=== PATIENT | female | born 1990 | race Caucasian/White ===

== ENCOUNTER 2020-04-17 13:28 | Observation (INO) | payer MEDICAID, SELFPAY ==
--- NOTE | ~2020-04-17 | US_ITS ---
EXAMINATION: US OB limited DATE: 04/17/2020 15:55 INDICATION: Placental evaluation, third trimester TECHNIQUE: Real-time ultrasound of the pelvis was performed. The interpreting radiologist was not pre sent for the study. COMPARISON: None. FINDINGS: There is a single living fetus in vertex presentation. The placenta is anterior and 9.7 cm from the internal cervical os. There is an approximately 3.6 x 1.8 cm complex cystic and solid area a t the side of the otherwise normal-appearing placenta. cardiac activity and movemen t are noted. heart rate is 149 beats per minute (bpm). The amniotic fluid index is subjectively normal. IMPRESSION: 1. Single living fetus in vertex presentation. 2. Complex cystic and solid area of the placenta which could reflect placental hemorrhage. Sonographi c follow-up is recommended. Reviewed, dictated and finalized at location A. IMPRESSION: 1. Single living fetus in vertex presentation. 2. Complex cystic and solid area of the placenta which could reflect placental hemorrhage. Sonographic follow-up is recommended.
[2020-04-17 13:57] VITALS: BP 102/44; PULSE 78
[2020-04-17 14:00] VITALS: BP 108/46; PULSE 77; TEMP 36.6
[2020-04-17 14:10] VITALS: BMI 19.1
--- NOTE | 2020-04-17 14:10 | OBADM ---
This patient, Mary Leigh, admitted to the OB room OB Post 111 at 1328 for observation for vaginal spotting. Patient/family oriented to hospital policies and general routines including ID bracelet, bed and alarms, visiting hours, pain management, procedures, bathroom and other care routines, personal items, smoking policy, room service/diet, and visiting hours. Patient/Family are encouraged to report perceived risks to care and to ask questions if they do not understand what they are told or what they should do.
[2020-04-17 15:00] VITALS: BP 101/51; PULSE 63
[2020-04-17 15:52] LABS: Add Urine Microscopic? NO; Appearance Urine Clear (Clear); Bilirubin Urine Negative (Negative); Blood Urine Negative (Negative); Color Urine Straw (Yellow); Glucose Urine UA Negative (Negative); Ketones Urine Negative (Negative); Leukocyte Esterase Ur Negative LEU/UL (Negative); Nitrate Urine Negative (Negative); Protein Urine Negative (Negative); Specific Grav Ur 1.008 (1.001-1.035); Urobilinogen Urine Negative mg/dL (<2.0)
[2020-04-17 15:57] VITALS: BP 105/56; PULSE 66
[2020-04-17 16:00] VITALS: BP 102/48; PULSE 66
[2020-04-17 17:00] VITALS: BP 104/48; PULSE 66; TEMP 36.8
--- NOTE | 2020-05-12 20:42 | P.PNOB_ITS ---
OB - Triage/Final Diagnosis Evaluation Laboratory results: Laboratory Tests 04/17/20 15:40 Urine Color Straw Urine Appearance Clear Urine pH 7.0 Ur Specific [place] 1.008 Urine Protein Negative Urine Glucose (UA) Negative Urine Ketones Negative Ur Blood (Man) Negative Urine Nitrate Negative Urine Bilirubin Negative Urine Urobilinogen Negative Leukocyte Esterase Rfl Negative Final Diagnosis (1) Spotting: Code(s): N92.0 - Excessive and frequent menstruation with regular cycle Status: Acute
== END 2020-04-17 18:30 | disposition home or self-care (01) ==
PROVIDERS: Advanced Practice Midwife; Admitting Provider Obstetrics & Gynecology; Visit Provider Obstetrics & Gynecology
DX: O26.859 Spotting complicating pregnancy, unspecified trimester (principal); Z3A.00 Weeks of gestation of pregnancy not specified
CPT/HCPCS: 76815; 81003; G0378; G0379

== ENCOUNTER 2020-06-30 08:43 | Outpatient (CLI) | payer OTHER, SELFPAY ==
--- NOTE | ~2020-06-30 | US_ITS ---
US axilla RT 06/30/2020 09:23 Indication: Right axillary lump. Procedure: High-resolution Limited ultrasound of the right axilla Comparison: No prior studies for comparison. Findings: There are multiple lymph nodes in the area of palpable concern in the right axilla with per sistent normal fatty hilum, largest measuring 2.1 x 1.6 x 0.6 cm. No abnormal fluid. Impression: 1: Right axillary lymphadenopathy with persistent normal fatty hilum, likely reactive lymph nodes. Reviewed, dictated and finalized at location A. DUMPER Impression: 1: Right axillary lymphadenopathy with persistent normal fatty hilum, likely re active lymph nodes.
== END 2020-06-30 08:44 | disposition home or self-care (01) ==
PROVIDERS: Visit Provider Obstetrics & Gynecology
DX: N63.31 Unspecified lump in axillary tail of the right breast (principal); R59.1 Generalized enlarged lymph nodes
CPT/HCPCS: 76882

== ENCOUNTER 2020-07-04 07:12 | Inpatient (IN) | payer OTHER, SELFPAY ==
[2020-07-04] VITALS (70 sets, daily range): BP systolic 83–133; BP diastolic 13–112; PULSE 63–117; RESP 16; TEMP 36.5–37.1; O2SAT 98–100; BMI 24.1
--- NOTE | 2020-07-04 07:43 | P.PNAN_ITS ---
Anes - Eval Pre Procedure Procedure: Labor epidural Date/Time: 07/04/20 07:43 Surgeon: Ruth Preop Diagnosis: pain during labor Pre Op Diagnosis: Contractions Patient Data Age: 29 Gender: F Height: Weight: Last Vital Signs Pulse 84 07/04/20 07:31 BP 116/67 07/04/20 07:31 Allergies Allergy/AdvReac Type Severity Reaction Status Date / Time clavulanic acid Allergy Severe Anaphylactic Verified 04/17/20 18:01 Shock Home Medications Medication Instructions Recorded Confirmed Type DENTAL THERAPIST-PNV-DHA 1 cap PO DAILY 04/17/20 04/17/20 History albuterol sulfate 2 puff INHALATION QID PRN 04/17/20 04/17/20 History Patient hx anesthesia problems: none Family hx anesthesia problems: none PMFSH Past Medical History Medical History (Updated 07/04/20 @ 07:44 by Dleores Matthews CRNA) Asthma Exam Day of Procedure 07/04/20 07:43
[2020-07-04 07:46] LABS: Basophils Percent Auto 0.2 % (0.2-1.2); Eosinophils Absolute Auto 0.1 K/mm3 (0-0.3); Eosinophils Percent Auto 0.7 % (0-4.4); Hematocrit 38.4 % (37.0-47.0); Hemoglobin 13.2 g/dL (12.0-15.0); Immature Granulocyte Absolute 0.19 K/mm3 (0.00-0.031); Lymphocytes Absolute Auto 2.28 K/mm3 (0.9-3.2); Lymphocytes Percent Auto 12.6 % (18.3-44.2); Mean Corpuscular HGB Conc 34.4 g/dl (32-36); Mean Corpuscular Hemoglobin 33.5 pg (26-34); Mean Corpuscular Volume 97.5 fl (80-100); Mean Platelet Volume 10.8 fl (7.4-10.4); Monocytes Percent Auto 5.5 % (2.6-8.5); Neutrophils Absolute Auto 14.5 K/mm3 (1.3-6.7); Platelet Count Result 258 k/mm3 (150-375); Red Blood Count 3.94 M/mm3 (4.2-5.4); White Blood Count 18.2 K/mm3 (4.5-10.0)
--- NOTE | 2020-07-04 07:47 | WPDOBADMIT ---
Obstetrics - Admit Note Admission Note: 29y/o here in active labor. record reviewed. No pertinent additions to the history and/or any subsequent changes in the physical findings that are not consistent with the expected course of the were found. Additions to the history and/or subsequent changes in the physical findings follow. None.
--- NOTE | 2020-07-04 07:51 | LDADM ---
This patient, Mary Leigh, was admitted to Labor/Delivery/Recovery 106 on 07/04/20 at 07:12. Plans for labor, pain management and were discussed with patient. Patient/family oriented to hospital policies and general routines including ID bracelet, bed and alarms, visiting hours, pain management, procedures, bathroom and other care routines, personal items, smoking policy, room service/diet and guest tray routines, security routines, and visiting hours. Patient/Family are encouraged to report perceived risks to care and to ask questions if they do not understand what they are told or what they should do. See OBIX for further documentation.
[2020-07-04] MEDS: LACTATED RINGERS 1,000 ML 125 ML IV CONT (08:00)
[2020-07-04] MEDS: LACTATED RINGERS 1,000 ML 999 ML (08:01)
--- NOTE | 2020-07-04 11:51 | PM.OBPRVD ---
OB - Delivery Note Procedure Delivery date: 07/04/20 Procedure: Mother and baby in stable condition. Cord gasses collected and handed off to staff. Intrapartal events: None Induction method: none Delivery monitor: external FHT and external uterine Route of delivery: Episiotomy description: None Laceration Description: None Quantitative Blood Loss (ml): 72 Anesthesia type: Epidural Baby Date of : 07/04/20 Time of : 11:38 Weeks of gestation at delivery: 38 Infant gender: Female presentation: vertex position: Right Occiput Anterior Placenta delivery description: Spontaneous cord vessel description: 3 Vessels score one minute: 8 score five minutes: 9
[2020-07-04] MEDS: IBUPROFEN 600 MG TABLET PO ×2 (13:28→22:54)
[2020-07-04 13:37] LABS: Amphetamine Screen Urine Negative (Negative); Barbiturate Screen Urine Negative (Negative); Benzodiazepines Screen Urine Negative (Negative); Cannabinoid Screen Urine Negative (Negative); Cocaine Screen Urine Negative (Negative); Methadone Screen Urine Negative (Negative); Opiate Screen Urine Negative (Negative); Phencyclidine Screen Urine Negative (Negative)
[2020-07-04] MEDS: BENZOCAINE 20% AER SPR (*SP) 56 GM CAN 1 SPRAY TOPICAL (14:09)
[2020-07-04] MEDS: WITCH HAZEL 40 PADS 1 PAD TOPICAL (14:09)
--- NOTE | 2020-07-04 14:43 | OBPPTRN ---
Patient transferred to post room # 282 via wheelchair. Support person present. Oriented to unit, room, information board, rooming in, admission packet and security measures. Patient verbalizes understanding.
--- NOTE | 2020-07-04 15:00 | PC.NURSE ---
Consulted with patient, mother reports two other children. Mother states does not open widely for deep latch. and very sleepy while feeding. Reviewed feeding cues, frequencies, duration of feedings, feeding elimination flow sheet, and signs of adequate intake. Demonstrated stimulation techniques to wake for feeding. Demonstrated self- expression t suggested to do before attempting latch Assisted with to breast. Reviewed positioning/alignment in football, holding breast in C hold and guided asymmetrical latch on. was able to latch correctly with first attempt. Infant nursed eagerly, with steady draws and frequent swallowing noted. Reviewed signs of a correct latch, effective nursing and suck swallow ratio. was able to maintain latch without discomfort to mother. Reviewed effective vs ineffective nursing. Nipple care reviewed. Suggested to stimulate to keep in an effective nursing pattern for increased intake and to assist with maintaining deep latch. Demonstrated how to adjust latch while feeding. Instructed mother to call out for RN assistance if she is unable to latch for feeding or she has discomfort with nursing. Instructed feeding should be initiated three hours from start of last feeding or if feeding cues are noted before. Mother voiced understanding of information shared.
[2020-07-04] MEDS: ACETAMINOPHEN 325 MG TABLET 650 MG PO (18:25)
[2020-07-05] MEDS: IBUPROFEN 600 MG TABLET PO (05:12)
[2020-07-05 05:32] LABS: Hematocrit 32.8 % (37.0-47.0); Hemoglobin 11.2 g/dL (12.0-15.0)
--- NOTE | 2020-07-05 07:27 | WPDANLDPN2 ---
Anes-Prog Note L&D Date/Time: 07/05/20 07:27 Comfortable throughout: labor and delivery Neuraxial method: epidural Epidural/Spinal procedure site: tender Neuro status: Neuro function grossly intact. Cardiovascular status: normal Respiratory status: normal Airway patency: baseline Mental status: baseline Post-Op hydration status: normal Vital Signs: Last Vital Signs Temp 98.6 F 07/04/20 20:05 Pulse 71 07/04/20 20:05 Resp 16 07/04/20 20:05 BP 113/47 L 07/04/20 20:05 Pulse Ox 99 07/04/20 20:05 Pain score (VAS): 09/04 I/O: Intake & Output 07/04/20 07/04/20 07/05/20 15:59 23:59 07:59 Output Total 92 Balance -92 Post-procedural complaints: none Patient feedback: Patient satisfied with anesthetic care.
--- NOTE | 2020-07-05 07:37 | P.PNOB_ITS ---
OB - PN: Subj Subjective Date/time seen: 07/05/20 07:37 Patient comments: no complaints baby status: doing well [place] feeding status: exclusively breast feeding Narrative: Doing well. E/A/V. NOrmal lochia. Back sore at epidural site. WOuld like DC today. OB - PN: Obj Data Labs CBC & Chem 7: 07/05/20 05:16 Labs: Laboratory Results - last 24 hr 07/04/20 07/04/20 07/04/20 07:38 07:38 13:15 WBC 18.2 H RBC 3.94 L Hgb 13.2 Hct 38.4 MCV 97.5 MCH 33.5 MCHC 34.4 RDW 13.0 Plt Count 258 MPV 10.8 H Immature Gran % (Auto) 1.0 H Neut % (Auto) 80.0 H Lymph % (Auto) 12.6 L [place] % (Auto) 5.5 Eos % (Auto) 0.7 Baso % (Auto) 0.2 Lymph # (Auto) 2.28 [place] # (Auto) 1.0 H Eos # (Auto) 0.1 Baso # (Auto) 0.0 Abs Immat Gran (auto) 0.19 H Absolute Neuts (auto) 14.5 H Absolute Nucleated RBC 0.0 Nucleated RBC % 0.0 Urine Opiates Screen Negative Urine Methadone Screen Negative Ur Barbiturates Screen Negative Ur Phencyclidine Scrn Negative Ur Amphetamine Screen Negative U Benzodiazepines Scrn Negative Urine Cocaine Screen Negative U Cannabinoids Screen Negative Blood Type O Positive Antibody Screen Negative 07/05/20 05:16 WBC RBC Hgb 11.2 L Hct 32.8 L MCV MCH MCHC RDW Plt Count MPV Immature Gran % (Auto) Neut % (Auto) Lymph % (Auto) [place] % (Auto) Eos % (Auto) Baso % (Auto) Lymph # (Auto) [place] # (Auto) Eos # (Auto) Baso # (Auto) Abs Immat Gran (auto) Absolute Neuts (auto) Absolute Nucleated RBC Nucleated RBC % Urine Opiates Screen Urine Methadone Screen Ur Barbiturates Screen Ur Phencyclidine Scrn Ur Amphetamine Screen U Benzodiazepines Scrn Urine Cocaine Screen U Cannabinoids Screen Blood Type Antibody Screen OB - PN A/P Plan day: 1 Plan: routine care Comments: Doing great. Home later today. DC instructions given. Time Spent With Patient Time: Total time spent is greater than 50% in coordination of care (as documented) at patient's floor/unit and/or counseling patient: Time with patient: less than 15 minutes Exam Narrative: Exam Narrative: NAD abdomen soft, appropriately tender, FF below Umbilicus Extremities nontender with 1+ edema
--- NOTE | 2020-07-05 07:42 | PM.OBDSVD ---
DS: Admitting Diagnosis Admitting Diagnosis Admitting Diagnosis: Contractions DS: Discharge Diagnosis Discharge Diagnosis (1) Term delivered: Code(s): O80 - Encounter for full-term uncomplicated delivery Status: Acute OB - DS: Summary OB Procedures : None OB Procedures Intrapartum: Spontaneous Vag Delivery OB Procedures: : None Peripartum Data Delivery Method: Natural Vaginal complications: none Status at Discharge Functional status at discharge: independent ambulation Time Spent with Patient Time attestation: Total time spent providing and/or coordinating discharge services: Time spent: Less than 30 minutes DS: Data Data Completed and Pending Labs on day of discharge: Labs from last 24 hours 07/05/20 07/04/20 07/04/20 05:16 13:15 07:38 WBC RBC Hgb 11.2 L Hct 32.8 L MCV MCH MCHC RDW Plt Count MPV Immature Gran % (Auto) Neut % (Auto) Lymph % (Auto) [place] % (Auto) Eos % (Auto) Baso % (Auto) Lymph # (Auto) [place] # (Auto) Eos # (Auto) Baso # (Auto) Abs Immat Gran (auto) Absolute Neuts (auto) Absolute Nucleated RBC Nucleated RBC % Urine Opiates Screen Negative Urine Methadone Screen Negative Ur Barbiturates Screen Negative Ur Phencyclidine Scrn Negative Ur Amphetamine Screen Negative U Benzodiazepines Scrn Negative Urine Cocaine Screen Negative U Cannabinoids Screen Negative RPR Blood Type O Positive Antibody Screen Negative 07/04/20 07/04/20 07:38 07:38 WBC 18.2 H RBC 3.94 L Hgb 13.2 Hct 38.4 MCV 97.5 MCH 33.5 MCHC 34.4 RDW 13.0 Plt Count 258 MPV 10.8 H Immature Gran % (Auto) 1.0 H Neut % (Auto) 80.0 H Lymph % (Auto) 12.6 L [place] % (Auto) 5.5 Eos % (Auto) 0.7 Baso % (Auto) 0.2 Lymph # (Auto) 2.28 [place] # (Auto) 1.0 H Eos # (Auto) 0.1 Baso # (Auto) 0.0 Abs Immat Gran (auto) 0.19 H Absolute Neuts (auto) 14.5 H Absolute Nucleated RBC 0.0 Nucleated RBC % 0.0 Urine Opiates Screen Urine Methadone Screen Ur Barbiturates Screen Ur Phencyclidine Scrn Ur Amphetamine Screen U Benzodiazepines Scrn Urine Cocaine Screen U Cannabinoids Screen RPR Pending Blood Type Antibody Screen Discharge Plan Discharge Attending physician on discharge: Janice Ward Discharging Clinician: Janice Ward Anticipated Discharge Date/Time: 07/05/20 14:00 Patient Disposition: Home, Self-Care Activity: may shower and pelvic rest Diet: as tolerated Discharge Instructions: pelvic rest for 6 weeks, follow up 4 weeks Patient Instructions: Antibiotic Form Stand Alone Forms: General Discharge Information Follow-up/Referrals: Flynn Miranda MD [Physician] - (4 weeks) Discharge Medications: Continued CLINICAL MEDICAL ASSISTANT-PNV-DHA 28 mg iron- 1 mg-200 mg capsule 1 cap PO DAILY RF: 0 albuterol sulfate 90 mcg/actuation Hfa Aerosol Inhaler 2 puff INHALATION QID PRN (Reason: Shortness Of Breath) RF: 0 Date of admission: 07/04/20 07:12 Primary Care Provider: PHYSICIAN,SUPERVISOR FINISH END Admitting Provider: Flynn Miranda Attending physician on admission: Flynn Miranda Condition: Stable
[2020-07-05 07:45] VITALS: BP 110/53; PULSE 63; RESP 18; TEMP 36.8; O2SAT 99
--- NOTE | 2020-07-05 07:45 | PM.OBDSVD ---
DS: Admitting Diagnosis Admitting Diagnosis Admitting Diagnosis: Contractions DS: Discharge Diagnosis Discharge Diagnosis (1) Term delivered: Code(s): O80 - Encounter for full-term uncomplicated delivery Status: Acute OB - DS: Summary OB Procedures : None OB Procedures Intrapartum: Spontaneous Vag Delivery OB Procedures: : None Peripartum Data Delivery Method: Natural Vaginal complications: none Status at Discharge Functional status at discharge: independent ambulation Time Spent with Patient Time attestation: Total time spent providing and/or coordinating discharge services: Time spent: Less than 30 minutes DS: Data Data Completed and Pending Labs on day of discharge: Labs from last 24 hours 07/05/20 07/04/20 07/04/20 05:16 13:15 07:38 WBC RBC Hgb 11.2 L Hct 32.8 L MCV MCH MCHC RDW Plt Count MPV Immature Gran % (Auto) Neut % (Auto) Lymph % (Auto) [place] % (Auto) Eos % (Auto) Baso % (Auto) Lymph # (Auto) [place] # (Auto) Eos # (Auto) Baso # (Auto) Abs Immat Gran (auto) Absolute Neuts (auto) Absolute Nucleated RBC Nucleated RBC % Urine Opiates Screen Negative Urine Methadone Screen Negative Ur Barbiturates Screen Negative Ur Phencyclidine Scrn Negative Ur Amphetamine Screen Negative U Benzodiazepines Scrn Negative Urine Cocaine Screen Negative U Cannabinoids Screen Negative Blood Type O Positive Antibody Screen Negative 07/04/20 07:38 WBC 18.2 H RBC 3.94 L Hgb 13.2 Hct 38.4 MCV 97.5 MCH 33.5 MCHC 34.4 RDW 13.0 Plt Count 258 MPV 10.8 H Immature Gran % (Auto) 1.0 H Neut % (Auto) 80.0 H Lymph % (Auto) 12.6 L [place] % (Auto) 5.5 Eos % (Auto) 0.7 Baso % (Auto) 0.2 Lymph # (Auto) 2.28 [place] # (Auto) 1.0 H Eos # (Auto) 0.1 Baso # (Auto) 0.0 Abs Immat Gran (auto) 0.19 H Absolute Neuts (auto) 14.5 H Absolute Nucleated RBC 0.0 Nucleated RBC % 0.0 Urine Opiates Screen Urine Methadone Screen Ur Barbiturates Screen Ur Phencyclidine Scrn Ur Amphetamine Screen U Benzodiazepines Scrn Urine Cocaine Screen U Cannabinoids Screen Blood Type Antibody Screen Discharge Plan Discharge Attending physician on discharge: Janice Ward Discharging Clinician: Janice Ward Anticipated Discharge Date/Time: 07/05/20 14:00 Patient Disposition: Home, Self-Care Activity: may shower and pelvic rest Diet: as tolerated Discharge Instructions: pelvic rest for 6 weeks, follow up 4 weeks Patient Instructions: Antibiotic Form Stand Alone Forms: General Discharge Information Follow-up/Referrals: Flynn Miranda MD [Physician] - (4 weeks) Discharge Medications: Continued PULLMAN CAR CLERK-PNV-DHA 28 mg iron- 1 mg-200 mg capsule 1 cap PO DAILY RF: 0 albuterol sulfate 90 mcg/actuation Hfa Aerosol Inhaler 2 puff INHALATION QID PRN (Reason: Shortness Of Breath) RF: 0 Date of admission: 07/04/20 07:12 Primary Care Provider: PHYSICIAN,EYEGLASS LENS GENERATOR Admitting Provider: Flynn Miranda Attending physician on admission: Flynn Miranda Condition: Stable
--- NOTE | 2020-07-05 09:05 | PC.NURSE ---
Mother is able to independently latch infant with appropriate positioning/alignment. She denies any nipple discomfort, is feeding as required and waking to feed if needed. has had at least 8 effective feedings in the past 24 hours, and is currently meeting outcomes for weight, output, jaundice and feeding frequencies. Mother states she feels confident to continue effective at home. Reviewed transition to breast milk, signs of adequate intake, and engorgement/relief. Instructed to call ICP if intake/output less than required. Reviewed regular medications mother is taking. Information provided per [place]. Reviewed community resources on the [facility] website and in the Mom/Baby guide. Information on outpatient services provided. Mother has no further questions at this time.
[2020-07-05] MEDS: TETANUS,DIPHTHERIA,AC PERTUSSIS ADULT (0.5 ML) BOOSTRIX IM (09:50)
[2020-07-05] MEDS: MULTIVIT/MIN/PREN/FOL AC/IRON TABLET 1 TAB PO (09:50)
[2020-07-05] MEDS: ACETAMINOPHEN 325 MG TABLET 650 MG PO (09:54)
[2020-07-05 12:02] LABS: Rapid Plasma Reagin Non-Reactive (NonReactive)
[2020-07-06 08:33] VITALS: BP 91/44; PULSE 82; RESP 20; TEMP 36.7; O2SAT 100
== END 2020-07-05 12:50 | disposition home or self-care (01) | DRG 807 ==
LOC: ANHLDR 13:57 → ANHOB2 14:45
PROVIDERS: Advanced Practice Midwife; Admitting Provider Obstetrics & Gynecology; Visit Provider Obstetrics & Gynecology
DX: O69.81X0 Labor and delivery complicated by cord around neck, without compression, not applicable or unspecified (principal); Z37.0 Single live birth; Z3A.38 38 weeks gestation of pregnancy
CPT/HCPCS: 36415; 80307; 85014; 85018; 85025; 86592; 86850; 86900; 86901; 90715; A9270; J2795; J7120